=== PATIENT | male | born 1970 | race Caucasian/White ===

== ENCOUNTER 2025-02-09 09:52 | Emergency (ER) | payer MEDICAID, SELFPAY ==
[2025-02-09 09:55] VITALS: BP 174/107; PULSE 96; RESP 34; TEMP 36.8; O2SAT 99; BMI 32.8
--- NOTE | 2025-02-09 10:27 | EKG12_ITS ---
Test Reason : CP/ABD Blood Pressure : */* mmHG Vent. Rate : 91 BPM Atrial Rate : 91 BPM P-R Int : 128 ms QRS Dur : 84 ms QT Int : 362 ms P-R-T Axes : 60 32 79 degrees QTcB Int : 445 ms Normal sinus rhythm with sinus arrhythmia Normal ECG Confirmed by Pete Guerrero ([id number]), script editor MIKE NAVARRO ([id number]) on 02/10/2025 11:00:29 AM Referred By: Confirmed By: Pete Guerrero
--- NOTE | 2025-02-09 10:28 | CT_ITS ---
PROCEDURE: ABDOMEN/PELVIS W IV CONT ONLY 02/09/2025 REASON FOR EXAM: ABDOMINAL PAIN TECHNIQUE: Abdomen and pelvis CT with intravenous contrast. Coronal and Sagittal reconstruction series were provided. PATIENT PREPARATION: Per protocol ORAL CONTRAST TYPE: None. CONTRAST: Isovue 370 VOLUME: 100 mL One or more dose reduction techniques were used (e.g., Automated exposure control, adjustment of the mA and/or kV according to patient size, use of iterative reconstruction technique. RADIATION DOSE SUMMARY: CTDlvol: 21 mGy DLP: 1100 mGycm COMPARISON: None. FINDINGS: Lung bases: Mild dependent atelectasis. The heart is normal in size. Liver: The liver is normal in size without suspicious hepatic mass. The major portal veins are patent. No biliary ductal dilation. Gallbladder: No radiopaque stones within the gallbladder. Spleen: Normal in size. Pancreas: Unremarkable. Adrenals: Mild thickening of the left adrenal gland without focal mass. Kidneys: No hydronephrosis or nephrolithiasis. Bladder: Minimally distended and unremarkable. Reproductive Organs: Unremarkable. Bowel: The bowel loops are normal in caliber. No ascites or pneumoperitoneum. Normal appendix. Mild distal colonic diverticulosis. Lymph nodes: No suspicious lymphadenopathy. Vasculature: Mild mixed plaque of the aortoiliac vessels. Bones: Thoracolumbar spondylosis with leftward curvature of the lower lumbar spine.. CT/Abdomen/Pelvis W IV Cont ONLY IMPRESSION: No acute abdominopelvic finding. Reading Location: [id number]
--- NOTE | 2025-02-09 10:29 | EDS_ITS ---
HPI HPI - GI History of Present Illness Chief Complaint: Abd Pain Detail of Chief Complaint: Abdominal pain Informant: patient Narrative Narrative: Patient presents the emergency department complaint of abdominal pain that started 2 days ago. He complains of vomiting and diarrhea. He is thrown up about 5 times today. Diarrhea is less frequent but watery. He denies blood in his vomit. Denies black tarry stool or blood in his stool. He denies sick contacts. He denies urinary symptoms. He states he has a history of ulcers and had surgery for his ulcers 2 years ago. He rates his pain a 7 out of 10. [facility] Medical History (Updated 02/09/25 @ 13:[address] Chaz Voss, DO) Ulcer Home Medications ?Medication ?Instructions ?Recorded ?Last Taken ?Type lansoprazole 30 mg capsule,delayed 30 mg PO DAILY #14 caps 02/09/25 Unknown Rx release (Prevacid) ondansetron 4 mg disintegrating 4 mg PO Q8H PRN PRN Na usea #10 tabs 02/09/25 Unknown Rx tablet Allergy/AdvReac Type Severity Reaction Status Date / Time No Known Allergies Allergy Verified 02/09/25 09:55 Social History Smoking Status: Current every day smoker tobacco type: cigarettes ROS ROS ED Review of Systems ROS Unobtainable: other Constitutional Constitutional ED: Reports lethargy; Denies chills, fever(s), sweats or weight loss Eyes Eyes: Denies blurry vision, change in vision or diplopia ENT ENT ED: Denies rhinorrhea or sore throat Cardiovascular Cardiovascular: Denies chest pain, orthopnea or racing heartbeat Respiratory/Chest Respiratory/Chest: Denies cough, dyspnea, dyspnea on exertion, orthopnea or sputum Gastrointestinal Gastrointestinal: Reports abdominal pain, diarrhea, nausea and vomiting Genitourinary Genitourinary ED: Denies dysuria, hematuria or urinary frequency Musculoskeletal Musculoskeletal: Denies arthralgias, back pain, myalgias or neck pain Integumentary Denies abscess, Abrasions or rash Neurologic Neurologic: Denies headache(s) or weakness Psychiatric Psychiatric: Denies anxiety, depression or suicidal thoughts Endocrine Endocrinology: Denies polydipsia, polyphagia or polyuria Hematologic/Lymphatic Hematologic/Lymphatic: Denies easy bleeding, easy bruising or lymphadenopathy Allergic/Immunologic Allergic/Immunologic ED: Denies mouth swelling, tongue swelling or urticaria EXAM Physical Exam Const Vital Signs: 02/09/25 09:55 02/09/25 11:53 Temperature 98.2 F Temperature Source Oral Pulse Rate 96 82 Respiratory Rate 34 H Blood Pressure 174/107 H 167/99 H Blood Pressure Mean 129 121 Pulse Ox 99 99 Oxygen Delivery Method Room Air Positive well nourished and well developed General Appearance ED: well developed and NAD HEENT Reports TM's clear and moist mucous membranes normocephalic and atraumatic; Negative for trauma or tenderness Tympanic Membrane ED: Yes TM's clear Eyes PERRL and EOMs intact bilaterally General Eye ED: Negative for pale conjunctiva or scleral icterus Neck no lymphadenopathy, supple and no JVD General: Negative for tenderness Chest Wall inspection of chest normal and palpation of chest normal Chest: Negative for tenderness Resp normal respiratory effort and clear to auscultation bilaterally Effort and Inspection: Negative for respiratory distress or pain with movement Auscultation: Negative for rhonchi, wheezes or diminished lung sounds Cardio regular rate, regular rhythm, S1 normal heart sound, S2 normal heart sound and no murmurs Peripheral Pulses: pulses 2+ throughout GI normal to inspection, nondistended, normoactive bowel sounds, soft to palpation, non-distended and no masses GI Narrative: Diffuse tenderness on exam. There is no rebound, rigidity, or peritoneal signs. No mass palpated. Back/Spine no CVA tenderness and no thoracic nor lumbar tenderness Extremity normal to inspection General Extremety ED: Negative for edema General Extremity: Negative for edema Neuro oriented x3, CN's II-XII intact bilaterally, no sensory deficits noted and gait normal Sensorium / Orientation: awake, alert, oriented to person, oriented to place and oriented to time Motor Exam: strength 5/5 throughout and strength abnormal Psych mental status grossly normal Skin no rashes or lesions noted and no wounds MDM MDM MDM Narrative Medical decision making narrative: Patient presents with vomiting and upper abdomen pain. No fever or recent illness. Currently not taking anything for acid secretion. States his recently left him and he has not followed up with primary care physician. CBC with differential obtained showed a white count of 14.9 with hemoglobin 16 and platelet count of 294. Chemistries unremarkable. Glucose elevated to 37. Patient with elevated lactate of 3.8. LFTs were normal. Lipase normal at 46. CT scan of the abdomen pelvis obtained showed no acute process. Urinalysis showed ketones but no significant signs of infection. I have been also see patient's son is a patient who mentioned that his dad's been having some syncopal episodes. Patient initially did not mention this and states that he had a couple episodes where he has coughed and passed out. He denies chest pain or palpitations or racing heart. EKG obtained showed a sinus rhythm with rate of 91 bpm with occasional PACs. Troponin performed was normal at 8. This point suspect likely cough mediated syncope. Vagal type reaction. I believe his white count is likely reactive to the retching and vomiting. While in the department he did receive morphine and Zofran as well as pantoprazole IV. He felt markedly improved after treatment. Will start patient on Prevacid as well as Zofran for home. Advised to push fluids. Refer to GI for follow-up. I suspect the lactic acidosis is likely dehydrational. As he does have ketones in the urine. He did receive a liter fluid bolus here. Do not feel patient is septic. Lab Data Attestation: I reviewed the patient's lab results. Labs: Laboratory Results - last 24 hr 02/09/25 02/09/25 02/09/25 09:59 10:40 12:23 WBC 14.9 H RBC 5.68 Hgb 16.2 Hct 47.7 MCV 84.0 MCH 28.5 MCHC 34.0 RDW Std Deviation 41.1 RDW Coeff of Nish 13.4 Plt Count 294 MPV 9.6 Immature Gran % (Auto) 0.600 Neut % (Auto) 82.6 H Lymph % (Auto) 11.4 L Chambers % (Auto) 5.0 Eos % (Auto) 0.1 Baso % (Auto) 0.3 Absolute Neuts (auto) 12.3 H Absolute Lymphs (auto) 1.70 Nucleated RBC % 0 Sodium 133 Potassium 4.1 Chloride 95 L Carbon Dioxide 16.2 L Anion Gap 22 H BUN 14 Creatinine 0.95 Estim Creat Clear Calc 87.19 Est GFR (MDRD) Non-Af 95 BUN/Creatinine Ratio 14.8 Glucose 237 H Lactic Acid 3.8 H* Calcium 9.9 Total Bilirubin 0.90 AST 22 ALT 18 Alkaline Phosphatase 88 Troponin T High Sens 8 Total Protein 7.8 Albumin 4.9 Globulin 2.9 Albumin/Globulin Ratio 1.7 Lipase 46 Urine Color Yellow Urine Clarity Clear Urine pH 6.0 Ur Specific [place] 1.015 Urine Protein TNP Urine Glucose (UA) 1000 H Urine Ketones 150 A* Urine Occult Blood 10 H Urine Nitrite Negative Urine Bilirubin Negative Urine Urobilinogen 1 H Ur Leukocyte Esterase Negative Radiography Diagnostic Testing: Clinical Impression(s) from Imaging Studies Abdomen/Pelvis CT 02/09/25 10:28 IMPRESSION: No acute abdominopelvic finding. Reading Location: [id number] Discharge Plan Triage Chief Complaint: Abd Pain ED Provider: Chaz Voss Dx/Rx/DC Orders Clinical Impression: GERD (gastroesophageal reflux disease), Vomiting, Syncope, vasovagal, Gastritis Instructions: ED GERD (Adult), ED Gastritis (Adult), ED Abdominal Pain Unkn Cause Male... Prescriptions: New ondansetron 4 mg tablet,disintegrating 4 mg PO Q8H PRN PRN (Reason: Nausea) Qty: 10 0RF lansoprazole [Prevacid] 30 mg capsule,delayed release(DR/EC) 30 mg PO DAILY Qty: 14 0RF Primary Care Provider: Care Physician,No Primary Referrals: Friend,Reed, DO [Med Staff - Active Staff] - 3-5 Days Care Physician,No Primary [Primary Care Provider] - Print Language: [place] Disposition Disposition: Home, Self Care
[2025-02-09 10:39] LABS: Absolute Neutrophil Count 12.3 X10^3/uL (2.0-7.7); Basophil# 0.04 X10^3/uL; Basophil% 0.3 % (0-1); Eosinophil# 0.01 X10^3/uL; Eosinophils% 0.1 % (0-5); Hematocrit 47.7 % (40-54); Hemoglobin 16.2 g/dL (13.0-16.5); Lymphocyte % 11.4 % (19-41); Mean Corpuscular Hgb 28.5 pg (27.0-32.0); Mean Platelet Vol. 9.6 fl (6.2-12.0); Monocyte# 0.74 X10^3/uL; NRBC Flagged by Analyzer 0 % (0-5); Neutrophil # 12.34 X10^3/uL (2.7-7.7); Neutrophil % 82.6 % (47-70); Platelet Count 294 K/mm3 (150-450); RBC Distribution Width CV 13.4 % (11.6-14.6); RBC Distribution Width SD 41.1 fl (35.1-43.9); Red Blood Count 5.68 M/mm3 (4.6-6.2); White Blood Count 14.9 K/mm3 (4.4-11.0)
[2025-02-09] MEDS: Morphine 4 MG/ML Syringe IV (10:49)
[2025-02-09] MEDS: Ondansetron 4 MG/2 ML Vial IV (10:49)
[2025-02-09] MEDS: 0.9% Normal Saline (1000mL) 1,000 ML 125 ML IV (10:49)
[2025-02-09] MEDS: Pantoprazole Sodium 40 MG in 0.9% Normal Saline (100mL MB+) 100 ML 330 MG IV (10:57)
[2025-02-09 10:59] LABS: ALB/GLOB Ratio 1.7 RATIO (0.9-2.4); AST(SGOT) 22 U/L (<=37); Alanine Aminotransfer ALT/SGPT 18 U/L (<=46); Albumin, Serum 4.9 g/dL (3.5-5.0); Alkaline Phosphatase 88 U/L (40-129); Anion Gap 22 (5-15); BUN 14 mg/dL (4-19); BUN/Creat Ratio 14.8 RATIO (10-20); Calcium,Total 9.9 mg/dL (7.6-11.0); Carbon Dioxide 16.2 mmol/L (21.0-32.0); Chloride 95 mmol/L (98-108); Creatinine, Serum 0.95 mg/dL (0.70-1.20); EST Glomerular Filtration Rate 95 (>60); Estimated Creatinine Clearance 87.19 ml/min (50-250); Globulin 2.9 g/dL (2.2-4.2); Glucose 237 mg/dL (70-99); Lipase 46 U/L (13-75); Potassium 4.1 mmol/L (3.3-5.1); Protein, Total 7.8 g/dL (5.9-8.4); Sodium Level 133 mmol/L (133-145)
[2025-02-09 11:48] LABS: Troponin T High Sensitivity 8 ng/L (<=22)
[2025-02-09 11:53] VITALS: BP 167/99; PULSE 82; O2SAT 99
[2025-02-09 11:56] LABS: Lactic Acid 3.8 mmol/L (0.0-2.0)
[2025-02-09 12:28] LABS: Bacteria 0 SEEN /hpf (None Seen); Mucous, Urine 0 SEEN /hpf (<or=2+); Red Blood Cells-Urine 0 SEEN /hpf (0-5); Squamous Epithelial Cells - UA 0 SEEN /hpf (0-5)
[2025-02-09 12:46] LABS: Color, Urine Yellow (Yellow); Glucose, Dipstick 1000 mg/dl (Normal); Leukocyte Esterase-Dipstick Negative /ul (Negative); Nitrite-Dipstick Negative (Negative); Occult Blood-Urine 10 /ul (Negative); Specific Gravity, Urine 1.015 (1.002-1.030); Urine Bilirubin Dipstick Negative (Negative); Urine Clarity Clear (Clear); Urine Urobilinogen 1 mg/dl (Normal)
[2025-02-09 12:56] LABS: Ketone-Dipstick 150 mg/dl (Negative)
[2025-02-09 13:00] VITALS: BP 135/91; PULSE 93; RESP 18; O2SAT 94
[2025-02-09 13:08] VITALS: BP 135/91; PULSE 93; RESP 18; TEMP 36.6; O2SAT 94
[2025-02-09 13:18] LABS: Protein, Urine (Random) 27.6 mg/dL (0.0-12.0)
[2025-02-09 13:25] LABS: White Blood Cells 0-5 SEEN /hpf (0-5)
[2025-02-09 14:56] LABS: Reflex Lactate? Y
== END 2025-02-09 13:11 | disposition home or self-care (01) ==
PROVIDERS: Emergency Provider Emergency Medicine; Visit Provider Emergency Medicine
DX: K29.70 Gastritis, unspecified, without bleeding (principal); R55 Syncope and collapse; F17.210 Nicotine dependence, cigarettes, uncomplicated; R74.8 Abnormal levels of other serum enzymes; K21.9 Gastro-esophageal reflux disease without esophagitis
CPT/HCPCS: 74177; 80053; 81001; 83605; 83690; 84156; 84484; 85025; 93005; 96361; 96374; 96375; 99285; Q9967; A4216; J2405